=== PATIENT | female | born 1995 | race Caucasian/White ===

== ENCOUNTER 2025-03-08 15:56 | Emergency (ER) | payer BC ==
[~2025-03-08] VITALS: Ht 152.4 cm; Wt 72.6 kg
[2025-03-08] MEDS ORDERED: BUCAPSOL10 MG (16:23)
[2025-03-08] MEDS ORDERED: ADDERALL 15 MG15 MG (16:24)
[2025-03-08] MEDS ORDERED: ACETAMINOPHEN 500 MG GEL..CAP PO ONE (17:15)
[2025-03-08] MEDS ORDERED: DEXAMETHASONE SODIUM PHOSPHATE 4 MG/ML VIAL IM ONE (17:15)
[2025-03-08] MEDS ORDERED: ORPHENADRINE CITRATE 30 MG/ML AMPUL IM ONE (17:15)
[2025-03-08] MEDS ORDERED: ORPHENADRINE CITRATE 30 MG/ML AMPUL ONE (17:24)
[2025-03-08] MEDS ORDERED: DEXAMETHASONE SODIUM PHOSPHATE 4 MG/ML VIAL ONE (17:24)
[2025-03-08] MEDS ORDERED: BUTALB/ACETAMINOPHEN/CAFFEINE 1 TAB TABLET PO ONE ×2 (21:00→21:22)
== END 2025-03-08 22:39 | disposition home or self-care (01) ==
LOC: ER 15:56
DX: S00.83XA Contusion of other part of head, initial encounter (principal); X58.XXXA Exposure to other specified factors, initial encounter; Y93.89 Activity, other specified; Y92.832 Beach as the place of occurrence of the external cause; Y99.9 Unspecified external cause status; Z88.8 Allergy status to other drugs, medicaments and biological substances